=== PATIENT | female | born 1980 | race Hispanic/Latino ===

== ENCOUNTER 2024-06-20 14:53 | Outpatient (CLI) | payer BC | END 2024-06-20 14:54 | disposition home or self-care (01) | LOC: BICMAMMO 14:53 | PROVIDERS: ATTEND Family Medicine | DX: R10.2 Pelvic and perineal pain (principal); D25.9 Leiomyoma of uterus, unspecified | CPT/HCPCS: 76856 ==

== ENCOUNTER 2024-08-21 08:33 | Outpatient (CLI) | payer BC | END 2024-08-21 08:34 | disposition home or self-care (01) | LOC: BICMRI 08:33 | PROVIDERS: ATTEND Family Medicine | DX: Z12.39 Encounter for other screening for malignant neoplasm of breast (principal); R92.30 Dense breasts, unspecified | CPT/HCPCS: A9577; C8908 ==